=== PATIENT | female | born 1950 | race Caucasian/White ===

== ENCOUNTER → 2016-11-05 | Outpatient (CLI) | payer BC ==
[~2016-11-05] MED LIST: ASPI81TA28 PO; BUPR150T5 PO; MULT-1092 PO; WLLUNK
--- NOTE | 2016-11-08 13:47 | MAMMOGRAPHY REPORT ---
BILATERAL DIGITAL SCREENING MAMMOGRAM TOMOSYNTHESIS WITH CAD: 11/05/2016 TECHNIQUE: Breast tomosynthesis in addition to standard 2D mammography was performed. Current study was also evaluated with a Computer Aided Detection (CAD) system. COMPARISON: Comparison is made to exams dated: 11/03/2015 mammogram, 10/28/2014 mammogram, 10/05/2012 mammogram, 09/21/2011 mammogram, 11/07/2015 mammogram, and 10/24/2013 mammogram - [facility]. BREAST COMPOSITION: There are scattered areas of fibroglandular density in both breasts. FINDINGS: No suspicious masses, calcifications, or areas of architectural distortion are noted in e ither breast. There has been no significant interval change compared to prior exams. IMPRESSION: ACR BI-RADS CATEGORY 1: NEGATIVE There is no mammographic evidence of malignancy. A 1 year screening mammogram is recommended. The p atient will receive written notification of the results. Approximately 10% of breast cancers are not detected with mammography. A negative mammographic repor t should not delay biopsy if a clinically suggestive mass is present. Renee Martinez M.D. ah/:11/05/2016 12:27:37 Oncology Social Work: Vicky VENEGAS)(Anika), [facility] letter sent: Normal 1/2 BI-RADS Code: ACR BI-RADS Category 1: Negative
== END | disposition home or self-care (01) ==
LOC: C.MAMM 09:18
PROVIDERS: ATTEND Family Medicine
DX: Z12.31 Encounter for screening mammogram for malignant neoplasm of breast (principal)

== ENCOUNTER 2017-05-19 19:57 | Emergency (ER) | payer BC ==
[~2017-05-19] VITALS: Ht 170.2 cm; Wt 66.8 kg
[~2017-05-19 19:57] MED LIST changes: -ASPI81TA28 PO; -BUPR150T5 PO; -MULT-1092 PO
[2017-05-19 20:03] VITALS: TEMP 36.8; Ht 170.2 cm; Wt 66.8 kg
--- NOTE | 2017-05-19 20:42 | DIAGNOSTIC IMAGING REPORT ---
RIGHT FOOT MIN 3 VIEWS ROUTINE CLINICAL HISTORY: Right foot pain status post trauma COMPARISON: None. DISCUSSION: There is a chip/avulsion fracture arising from the base of the fifth metatarsal. This appears corticated on the AP projection, and therefore this may be old. Please correlate with the patient's site of pain. 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 No dislocations are evident. There is a plantar calcaneal spur. IMPRESSION: 1. Age-indeterminate chip/avulsion fracture arising from the base the fifth metatarsal. As stated above this appears corticated on the AP projection and therefore may be old. Correlation with the patient's site of pain will be necessary. 2. Moderate arthritic changes at the level of the first metatarsal phalangeal joint. Electronically signed by: Chago Suazo M.D. 05/19/2017 8:40 PM Dictated Date/Time: 05/19/2017 8:38 PM
--- NOTE | 2017-05-19 20:43 | DIAGNOSTIC IMAGING REPORT ---
RIGHT ANKLE MIN 3 VIEWS ROUTINE CLINICAL HISTORY: Right ankle pain status post trauma COMPARISON: None. DISCUSSION: No fractures or dislocations of the ankle proper are visualized. Degenerative changes are present the level the first metatarsal phalangeal joint. There is an age-indeterminate chip/avulsion fracture arising from the base the fifth metatarsal. There is a plantar calcaneal spur. IMPRESSION: 1. No fractures of the tibia or fibula 2. Age-indeterminate chip/avulsion fracture arising from the base of the fifth metatarsal Electronically signed by: Chago Suazo M.D. 05/19/2017 8:42 PM Dictated Date/Time: 05/19/2017 8:41 PM
[2017-05-19] MEDS ORDERED: MULT-1092 PO (20:54)
[2017-05-19] MEDS ORDERED: ASPI81TA28 PO (20:54)
[2017-05-19] MEDS ORDERED: BUPR150T5 PO (20:54)
--- NOTE | 2017-05-19 20:58 | EMERGENCY ROOM VISIT NOTE ---
ED Visit Note First contact with patient: 20:07 CHIEF COMPLAINT: Ankle pain HISTORY OF PRESENT ILLNESS: This 66-year-old female patient presents to the emergency department ambulatory after sustaining an injury to the right ankle and foot with a twisting, inversion motion which occurred earlier this evening. The patient states that she missed a step while walking and rolled the right ankle. She denies any pain at rest, but states there is pain in the outside of the ankle with weightbearing. No knee pain, the patient is able to move their toes. No numbness or weakness of the foot, no laceration. The patient has not had a previous fracture to this ankle or foot. The patient has taken no medication for the pain. The patient denies any other injury. REVIEW OF SYSTEMS: A 6 system review of systems was completed with positives and pertinent negatives listed in the HPI. ALLERGIES: Except that edema, pseudoephedrine MEDICATIONS: See med list PMH: No significant past medical history. SOCIAL HISTORY: The patient lives locally with her spouse. Nonsmoker, denies alcohol use. PHYSICAL EXAM: Vital Signs: Reviewed Nurse's notes, vital signs stable. GENERAL : This is a 66-year-old female, no acute distress, but appears in pain, well- developed, well-nourished. MENTAL STATUS: Alert, oriented to person place and time, and cooperative. MUSCULOSKELETAL: There is mild tenderness to palpation over the right lateral malleolus. There is tenderness to palpation over the area of the proximal right fifth metatarsal. There is no tenderness over the rest of the foot. There is no calf or tibia/fibular tenderness. There is no visual deformity. The foot and toes are warm and well-perfused. Dorsalis pedis pulse 2+. Sensation to pain and light touch is intact. Capillary refill less than 2 seconds. RADIOGRAPHIC FINDINGS: RIGHT ANKLE MIN 3 VIEWS ROUTINE CLINICAL HISTORY: Right ankle pain status post trauma COMPARISON: None. DISCUSSION: No fractures or dislocations of the ankle proper are visualized. Degenerative changes are present the level the first metatarsal phalangeal joint. There is an age-indeterminate chip/avulsion fracture arising from the base the fifth metatarsal. There is a plantar calcaneal spur. IMPRESSION: 1. No fractures of the tibia or fibula 2. Age-indeterminate chip/avulsion fracture arising from the base of the fifth metatarsal RIGHT FOOT MIN 3 VIEWS ROUTINE CLINICAL HISTORY: Right foot pain status post trauma COMPARISON: None. DISCUSSION: There is a chip/avulsion fracture arising from the base of the fifth metatarsal. This appears corticated on the AP projection, and therefore this may be old. Please correlate with the patient's site of pain. 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 No dislocations are evident. There is a plantar calcaneal spur. IMPRESSION: 1. Age-indeterminate chip/avulsion fracture arising from the base the fifth metatarsal. As stated above this appears corticated on the AP projection and therefore may be old. Correlation with the patient's site of pain will be necessary. 2. Moderate arthritic changes at the level of the first metatarsal phalangeal joint. EMERGENCY DEPARTMENT COURSE: I examined the patient. X-rays of the right ankle and foot were reviewed by myself and read by radiology and reveal and age- indeterminate fracture of the fifth metatarsal. This does correlate with the site of the patient's pain and I feel this is likely acute. Patient was placed in a low top fracture boot and given referral to orthopedics. Conservative measures were discussed. The patient verbalized understanding of my assessment and treatment plan and was discharged home in good condition. DIAGNOSIS: Fifth metatarsal fracture Current/Historical Medications Scheduled Aspirin (Aspirin Ec), 81 MG PO DAILY Bupropion Hcl (Bupropion Hcl Xl), 150 MG PO QAM Multiple Vitamins W/ Minerals (Centrum Silver 50+Women), 1 TAB PO DAILY Allergies Coded Allergies: Fexofenadine (Verified Allergy, Unknown, Unknown, 05/19/17) Pseudoephedrine (Verified Allergy, Unknown, Unknown, 05/19/17) Vital Signs Date Time Temp Pulse Resp B/P (MAP) Pulse Ox O2 Delivery O2 Flow Rate FiO2 05/19/17 21:15 81 18 137/99 99 05/19/17 20:03 36.8 87 18 128/77 100 Room Air Departure Information Impression Primary Impression: Fracture of fifth metatarsal bone Dispostion Home / Self-Care Condition GOOD Referrals Fanny Reed D.O. (PCP) Rebel Cisse M.D. Patient Instructions My [facility] Additional Instructions You have been treated in the Emergency Department for a fifth metatarsal fracture. For pain control, you can use the following [id number] medicines (if >12 yo): - Regular strength (325mg/tab) Tylenol (acetaminophen) 2 tabs every 4-6 hours as needed. Do not exceed 12 tablets in a 24 hour period. Avoid taking more than 4 grams (4000 mg) of Tylenol per day. This includes any other sources of acetaminophen you may take on a regular basis. - Regular strength (200 mg/tab) Advil (ibuprofen) 1-2 tabs every 4-6 hours as needed. Do not exceed a dose of 3200 mg per day. If this is a recent injury (<24 hrs), ice can be applied to the area of pain for the first 3 days to help decrease pain and inflammation. You have been provided the number for an Orthopaedic Surgeon. You should call this number as soon as possible to establish a follow-up visit from today's Emergency Department visit. Wear the boot until follow-up with orthopedics. Return to the Emergency Department if your current symptoms worsen despite treatment course outlined above, or if you develop any of the following symptoms : intractable pain despite aforementioned treatment course or new onset of numbness or tingling of the foot. Problem Qualifiers Primary Impression: Fracture of fifth metatarsal bone Encounter type: initial encounter Fracture type: closed Fracture alignment : nondisplaced Laterality: right Qualified Codes: S92.354A - Nondisplaced fracture of fifth metatarsal bone, right foot, initial encounter for closed fracture
[2017-05-19 21:15] VITALS: BP 137/99; PULSE 81; O2SAT 99
== END 2017-05-19 21:16 | disposition home or self-care (01) ==
LOC: C.EDB 19:58 → C.EDD 21:16
DX: S92.354A Nondisplaced fracture of fifth metatarsal bone, right foot, initial encounter for closed fracture (principal); X50.9XXA Other and unspecified overexertion or strenuous movements or postures, initial encounter

== ENCOUNTER → 2017-11-21 | Outpatient (CLI) | payer OTHER ==
[~2017-11-21] MED LIST changes: +ASPI81TA28 PO; +BUPR150T5 PO; +MULT-1092 PO; -WLLUNK
--- NOTE | 2017-11-22 14:58 | MAMMOGRAPHY REPORT ---
BILATERAL DIGITAL SCREENING MAMMOGRAM TOMOSYNTHESIS WITH CAD: 11/21/2017 CLINICAL HISTORY: Routine screening. Patient has no complaints. TECHNIQUE: Breast tomosynthesis in addition to standard 2D mammography was performed. Current study was also evaluated with a Computer Aided Detection (CAD) system. COMPARISON: Comparison is made to exams dated: 11/05/2016 mammogram, 11/03/2015 mammogram, 10/28/2014 ma mmogram, 10/24/2013 mammogram, 10/05/2012 mammogram, and 09/21/2011 mammogram - [facility]. BREAST COMPOSITION: There are scattered areas of fibroglandular density in both breasts. FINDINGS: No suspicious masses, calcifications, or areas of architectural distortion are noted in ei ther breast. There has been no significant interval change compared to prior exams. IMPRESSION: ACR BI-RADS CATEGORY 1: NEGATIVE There is no mammographic evidence of malignancy. A 1 year screening mammogram is recommended. The pa tient will receive written notification of the results. Approximately 10% of breast cancers are not detected with mammography. A negative mammographic report should not delay biopsy if a clinically suggestive mass is present. Renee Martinez M.D. ah/:11/21/2017 15:31:42 Bread Supervisor: Jackie SPENCER(Hong)(Anika), [facility] letter sent: Normal 1/2 BI-RADS Code: ACR BI-RADS Category 1: Negative
== END | disposition home or self-care (01) ==
LOC: C.MAMM 14:21
PROVIDERS: ATTEND Family Medicine
DX: Z12.31 Encounter for screening mammogram for malignant neoplasm of breast (principal)